=== PATIENT | female | born 1960 | race Caucasian/White ===

== ENCOUNTER 2023-03-01 19:39 | Emergency (ER) | payer OTHER ==
[2023-03-01] MEDS ORDERED: Famotidine 20 MG TAB ONE (21:33)
[2023-03-01] MEDS ORDERED: hydrOXYzine 25 MG TAB ONE (21:33)
[2023-03-01] MEDS ORDERED: Loratadine 10 MG TAB ONE (21:33)
== END 2023-03-01 21:45 | disposition home or self-care (01) ==
LOC: MADERS 19:39
DX: L50.1 Idiopathic urticaria (principal); K21.9 Gastro-esophageal reflux disease without esophagitis; J44.9 Chronic obstructive pulmonary disease, unspecified; Z87.891 Personal history of nicotine dependence; Z79.899 Other long term (current) drug therapy
CPT/HCPCS: 93005

== ENCOUNTER 2023-12-08 19:42 | Emergency (ER) | payer BC, MEDICARE, OTHER | END 2023-12-08 20:08 | disposition home or self-care (01) | LOC: MADERS 19:42 | DX: Z00.00 Encounter for general adult medical examination without abnormal findings (principal); J44.9 Chronic obstructive pulmonary disease, unspecified; Z87.891 Personal history of nicotine dependence | CPT/HCPCS: 99282 ==

== ENCOUNTER 2025-07-05 11:20 | Emergency (ER) | payer MEDICARE | END 2025-07-05 13:15 | disposition home or self-care (01) | LOC: MADERS 11:20 | DX: M25.551 Pain in right hip (principal); J44.9 Chronic obstructive pulmonary disease, unspecified; Z87.891 Personal history of nicotine dependence | CPT/HCPCS: 99283 ==